=== PATIENT | female | born 1945 | race Caucasian/White ===

== ENCOUNTER 2017-12-13 16:13 | Emergency (ER) | payer OTHER, SELFPAY ==
[2017-12-13 16:17] VITALS: BP 147/82; PULSE 102; RESP 18; TEMP 36.2; O2SAT 99; BMI 21.6
[2017-12-13 17:00] VITALS: BP 147/78; PULSE 87; O2SAT 100
--- NOTE | 2017-12-13 17:27 | ED_ITS ---
HPI - Abdominal Pain <SAVANNA Drummond - Last Filed: 12/13/17 22:26> General Chief Complaint: Abdominal Pain Stated Complaint: ABD PAIN, RT SIDE Time Seen by Provider: 12/13/17 16:30 Source: patient Mode of arrival: ambulatory Limitations: no limitations History of Present Illness HPI narrative: 72-year-old female with history of hypertension and nonsmoker here for complaint of pain to her right lower abdomen that started last night. She denies any trauma to the abdomen. She denies any fevers or chills. No urinary symptoms. Last bowel movement was this morning and was unremarkable. Positive p.o. intake. She denies any stressors or relievers of her pain. She denies any flank pain. No other concerns or complaints Related Data Home Medications Medication Instructions Recorded Confirmed B-complex with vitamin C capsule 1 cap PO DAILY 11/28/17 12/13/17 aspirin 81 mg tablet,delayed 81 mg PO DAILY 11/28/17 12/13/17 release cholecalciferol (vitamin D3) 2,000 2,000 unit PO 1-2XD 11/28/17 12/13/17 unit capsule alprazolam 0.125 mg PO PRN PRN 12/13/17 12/13/17 Previous Rx's Medication Instructions Recorded hydrochlorothiazide 12.5 mg capsule 12.5 mg PO DAILY #90 cap 11/28/17 triamcinolone acetonide 0.025 % 1 applictn TOP DAILY PRN #80 gram 11/28/17 topical ointment varicella-zoster glycoE [id number] 50 mcg IM ONCE #1 each 11/28/17 adj(PF) 50 mcg/0.5 mL IM susp, kit ciprofloxacin HCl 500 mg PO BID #14 tab 12/13/17 hydrocodone-acetaminophen [[place]] 1 tab PO Q4-6H PRN #15 tab 12/13/17 metronidazole 250 mg PO TID #21 tab 12/13/17 ondansetron [Zofran ODT] 4 mg PO Q8-12H PRN #10 tab 12/13/17 Allergies Allergy/AdvReac Type Severity Reaction Status Date / Time meperidine [MEPERIDINE] Allergy Intermediate (DEMEROL) Verified 12/13/17 16:22 SHIVERS nitrofurantoin AdvReac Severe (MACROBID) Verified 12/13/17 16:22 [NITROFURANTOIN] RASH Review of Systems <SAVANNA Drummond - Last Filed: 12/13/17 22:26> Constitutional Denies chills, Denies fatigue, Denies fever(s), Denies lethargy and Denies weakness Eyes Denies change in vision, Denies eye discharge, Denies irritation and Denies loss of vision ENT Ears, Nose, Mouth, and Throat: Denies change in voice, Denies neck pain and Denies sore throat Cardiovascular Denies dyspnea and Denies dyspnea on exertion Respiratory Denies cough, Denies dyspnea, Denies dyspnea on exertion and Denies wheezing Gastrointestinal Gastrointestinal: Reports abdominal pain Genitourinary Denies hematuria, Denies flank pain, Denies urinary incontinence and Denies urinary urgency Musculoskeletal Denies neck pain Neurologic Denies confusion, Denies loss of vision and Denies weakness Psychiatric Denies anxiety, Denies confusion, Denies depression, Denies homicidal ideation and Denies suicidal ideation Endocrine Denies fatigue and Denies flushing Hematologic/Lymphatic Denies easy bruising Allergic/Immunologic Denies wheezing Exam <SAVANNA Drummond - Last Filed: 12/13/17 22:26> Initial Vital Signs Initial Vital Signs: Vital Signs Temperature 97.1 F L 12/13/17 16:17 Pulse Rate 102 H 12/13/17 16:17 Respiratory Rate 18 12/13/17 16:17 Blood Pressure 147/82 H 12/13/17 16:17 Pulse Oximetry 99 12/13/17 16:17 Const General: cooperative and well developed Nutritional Appearance: well nourished Orientation: alert, awake, oriented x3 and not confused [facility] Mouth: oral mucosae normal and moist mucous membranes Eyes Conjunctivae: conjunctivae normal Sclera: sclerae normal Pupils: PERRL EOM: EOM intact bilaterally Resp Effort & Inspection: normal respiratory effort, able to speak in complete sentences, no respiratory distress and no use of accessory muscles Auscultation: clear to auscultation bilaterally, no rales, no rhonchi and no wheezes Cardio Rate: regular rate Rhythm: regular rhythm Heart Sounds: no click, no gallops, no murmurs and no rubs Pulses: normal peripheral pulses GI Inspection: non-distended Palpation: soft, no hepatosplenomegaly, No guarding, No pulsatile mass and tender (Right lower quadrant) Auscultation: normal bowel sounds Skin General: no rashes or lesions noted, No jaundice and No petechiae Neuro General: alert, oriented x3, gait normal and no focal motor deficits Speech: speech normal <Herminio Gordon DO - Last Filed: 12/13/17 23:25> Initial Vital Signs Initial Vital Signs: Vital Signs Temperature 97.1 F L 12/13/17 16:17 Pulse Rate 102 H 12/13/17 16:17 Respiratory Rate 18 12/13/17 16:17 Blood Pressure 147/82 H 12/13/17 16:17 Pulse Oximetry 99 12/13/17 16:17 Course <SAVANNA Drummond - Last Filed: 12/13/17 22:26> Orders Ordered: ED Orders 12/13/17 17:20 Complete Blood Count AUTO DIFF Stat 12/13/17 18:30 Comprehensive Metabolic Panel Stat Lipase Stat 12/13/17 18:31 CT abdomen pelvis w con Stat 12/13/17 19:47 Urine Culture Stat Urine Microscopic Stat Discontinued Medications Hydrocodone Bitart/Acetaminophen (Vicodin Prepack) 1 bottle MISC SEEINSTR ONE Stop: 12/13/17 21:01 Last Admin: 12/13/17 21:13 Dose: 1 bottle Ciprofloxacin (Cipro) 500 mg PO NOW ONE Stop: 12/13/17 20:46 Last Admin: 12/13/17 20:55 Dose: 500 mg Sodium Chloride (Normal Saline 0.9%) 1,000 mls @ 150 mls/hr IV CONT SHAWNA Last Infusion: 12/13/17 20:32 Dose: 0 mls/hr Admin: 12/13/17 18:38 Dose: 150 mls/hr Metronidazole (Metronidazole) 500 mg PO NOW ONE Stop: 12/13/17 20:46 Last Admin: 12/13/17 20:51 Dose: 500 mg Ondansetron HCl (Zofran Odt Prepack) 1 bottle MISC SEEINSTR ONE Stop: 12/13/17 21:02 Last Admin: 12/13/17 21:13 Dose: 1 bottle Vital Signs - 8 hr 12/13/17 16:17 12/13/17 17:00 12/13/17 18:00 Temperature 97.1 F L Pulse Rate 102 H 87 94 H Respiratory Rate 18 Blood Pressure 147/82 H Blood Pressure [Left Arm] 147/78 H 148/65 H Pulse Oximetry 99 100 97 12/13/17 19:00 12/13/17 20:00 Temperature Pulse Rate 100 H 101 H Respiratory Rate 12 Blood Pressure Blood Pressure [Left Arm] 153/74 H 154/73 H Pulse Oximetry 98 100 <Herminio Gordon DO - Last Filed: 12/13/17 23:25> Orders Ordered: ED Orders 12/13/17 17:20 Complete Blood Count AUTO DIFF Stat 12/13/17 18:30 Comprehensive Metabolic Panel Stat Lipase Stat 12/13/17 18:31 CT abdomen pelvis w con Stat 12/13/17 19:47 Urine Culture Stat Urine Microscopic Stat Discontinued Medications Hydrocodone Bitart/Acetaminophen (Vicodin Prepack) 1 bottle MISC SEEINSTR ONE Stop: 12/13/17 21:01 Last Admin: 12/13/17 21:13 Dose: 1 bottle Ciprofloxacin (Cipro) 500 mg PO NOW ONE Stop: 12/13/17 20:46 Last Admin: 12/13/17 20:55 Dose: 500 mg Sodium Chloride (Normal Saline 0.9%) 1,000 mls @ 150 mls/hr IV CONT SHAWNA Last Infusion: 12/13/17 20:32 Dose: 0 mls/hr Admin: 12/13/17 18:38 Dose: 150 mls/hr Metronidazole (Metronidazole) 500 mg PO NOW ONE Stop: 12/13/17 20:46 Last Admin: 12/13/17 20:51 Dose: 500 mg Ondansetron HCl (Zofran Odt Prepack) 1 bottle MISC SEEINSTR ONE Stop: 12/13/17 21:02 Last Admin: 12/13/17 21:13 Dose: 1 bottle Vital Signs - 8 hr 12/13/17 16:17 12/13/17 17:00 12/13/17 18:00 Temperature 97.1 F L Pulse Rate 102 H 87 94 H Respiratory Rate 18 Blood Pressure 147/82 H Blood Pressure [Left Arm] 147/78 H 148/65 H Pulse Oximetry 99 100 97 12/13/17 19:00 12/13/17 20:00 Temperature Pulse Rate 100 H 101 H Respiratory Rate 12 Blood Pressure Blood Pressure [Left Arm] 153/74 H 154/73 H Pulse Oximetry 98 100 MDM - Abdominal Pain <SAVANNA Drummond - Last Filed: 12/13/17 22:26> Lab Data Result diagrams: 12/13/17 17:20 12/13/17 18:30 Lab Results 12/13/17 12/13/17 12/13/17 Range/Units 17:20 18:30 19:47 WBC 8.4 (4.5-11.0) X10^3/uL RBC 4.62 (4.0-5.2) X10^6/uL Hgb 14.6 (12.0-16.0) g/dL Hct 44.0 (36-46) % MCV 95.4 (80-100) fL MCH 31.7 (26-34) PG MCHC 33.3 (30-36) % RDW 13.1 (11.6-14.8) % Plt Count 168 (150-400) X10^3/uL Neut % (Auto) 87.3 H (50-75) % Lymph % (Auto) 9.0 L (25-40) % [place] % (Auto) 3.4 (3-14) % Eos % (Auto) 0.1 L (2-4) % Baso % (Auto) 0.2 (0-2) % Neut # (Auto) 7300 H (4175-4987) /uL Sodium 135 L (137-145) mmol/L Potassium 4.0 (3.4-5.1) mmol/L Chloride 98 (98-107) mmol/L Carbon Dioxide 27 (22-32) mmol/L BUN 17 (7-17) mg/dL Creatinine 0.60 (0.52-1.04) mg/dL Estimated GFR > 60.0 (>60) mL/min BUN/Creatinine Ratio 28.3 H (6-22) Glucose 116 H (80-110) mg/dL Calcium 9.4 (8.4-10.2) mg/dL Total Bilirubin 0.9 (0.2-1.3) mg/dL AST 44 H (14-36) IU/L ALT 36 (9-52) IU/L Alkaline Phosphatase 52 (38-126) U/L Total Protein 6.9 (6.3-8.2) g/dL Albumin 4.1 (3.5-5.0) g/dL Globulin 2.8 (1.7-4.1) g/dL Albumin/Globulin Ratio 1.5 (1.0-2.8) Lipase 25 (23-300) U/L Urine RBC None seen (0-5/HPF) Urine WBC 5-10/hpf H (0-5/HPF) Ur Squamous Epith Cells 0-1 /hpf Urine Bacteria Many (>30) H (None) Ur Culture Indicated? Specimen cultured Micro UA Comment Not Reportable Point of care testing: Urine Dip Bedside Urine Glucose Negative Bedside Urine Bilirubin - Negative Bedside Urine Ketone - Negative Urine Specific [place] 1.015 Bedside Urine Occult Blood - Negative Bedside Urine pH 6.5 Bedside Urine Protein - Negative Bedside Urine Urobilinogen - Negative Bedside Urine Nitrite + Positive Bedside Urine Leukocytes +/- [address] scan - abdomen: Radiologist's impression: [address] [address] [address] Scan Report Signed Patient: Kristy Diez SMR#: [id number] : 3Acct:[id number] Age/Sex: 72 / FDate of Service: 12/13/17 Loc: ED Accession Number: [id number] Procedure: CT abdomen pelvis w con Ordering Provider: Nura Baires PROCEDURE: CT ABDOMEN PELVIS W CON INDICATIONS: Right lower quadrant pain TECHNIQUE: After the administration of intravenous contrast, 5 mm thick sections acquired from the diaphragm to the symphysis. 5 mm coronal and sagittal reformats were acquired. For radiation dose reduction, the following was used: automated exposure control, adjustment of mA and/or kV according to patient size. COMPARISON: None. FINDINGS: Image quality: Excellent. ABDOMEN: Lung bases: Lung bases are clear. Heart size is normal. Solid organs: Liver is normal in size and enhancement. Gallbladder is well- distended. No calcified stone is seen. No gallbladder wall thickening or pericholecystic fluid. Biliary system is non dilated. Pancreas enhances normally. Spleen is normal in size and enhancement. No adrenal nodules. Kidneys demonstrate normal size and enhancement, without hydronephrosis. Peritoneum and bowel: Bowel loops demonstrate normal wall thickness and caliber. No free fluid or air. The appendix is visualized in right lower quadrant abdomen and is normal in size and appearance. No periappendiceal fat stranding is seen. Extensive sigmoid diverticulosis is noted. There is suggestion of wall thickening and pericolonic fat stranding involving distal sigmoid colon suspicious for acute diverticulitis. No discrete abscess collection. Nodes and vessels: No retroperitoneal or mesenteric adenopathy by size criteria. Aorta and inferior vena cava are normal in size. Miscellaneous: No ventral hernias. PELVIS: Genitourinary: Bladder wall thickness is normal. Miscellaneous: No inguinal hernias or adenopathy. Bones: No suspicious bony lesions. No vertebral body compression fractures. IMPRESSION: 1. Finding is suggestive of acute diverticulitis involving distal sigmoid colon. No evidence of perforation. No abscess collection. 2. Normal appendix. No bowel structure. Dictated by: Mihai Duncan M.D. on 12/13/2017 at 20:08 Approved by: Mihai Duncan M.D. on 12/13/2017 at 20:11 [facility] Narrative Medical decision making narrative: CBC and Chem panell were obtained were unremarkable. Lipase was negative. Urinalysis presents with positive WBC and also many bacteria seen however patient is asymptomatic for urinary tract infection. CT of the abdomen shows signs of diverticulitis. She is treated with ciprofloxacin and also metronidazole. Follow up with primary care provider in the next couple days for re-evaluation. Zofran is prescribed to help with any nausea. Small amount of [place] was provided for breakthrough pain. [id number] Tylenol as needed for any discomfort. For any worsening symptoms return emergency room. <Herminio Gordon, - Last Filed: 12/13/17 23:25> Lab Data Lab Results 12/13/17 12/13/17 12/13/17 Range/Units 17:20 18:30 19:47 WBC 8.4 (4.5-11.0) X10^3/uL RBC 4.62 (4.0-5.2) X10^6/uL Hgb 14.6 (12.0-16.0) g/dL Hct 44.0 (36-46) % MCV 95.4 (80-100) fL MCH 31.7 (26-34) PG MCHC 33.3 (30-36) % RDW 13.1 (11.6-14.8) % Plt Count 168 (150-400) X10^3/uL Neut % (Auto) 87.3 H (50-75) % Lymph % (Auto) 9.0 L (25-40) % Saunders % (Auto) 3.4 (3-14) % Eos % (Auto) 0.1 L (2-4) % Baso % (Auto) 0.2 (0-2) % Neut # (Auto) 7300 H (9181-0651) /uL Sodium 135 L (137-145) mmol/L Potassium 4.0 (3.4-5.1) mmol/L Chloride 98 (98-107) mmol/L Carbon Dioxide 27 (22-32) mmol/L BUN 17 (7-17) mg/dL Creatinine 0.60 (0.52-1.04) mg/dL Estimated GFR > 60.0 (>60) mL/min BUN/Creatinine Ratio 28.3 H (6-22) Glucose 116 H (80-110) mg/dL Calcium 9.4 (8.4-10.2) mg/dL Total Bilirubin 0.9 (0.2-1.3) mg/dL AST 44 H (14-36) IU/L ALT 36 (9-52) IU/L Alkaline Phosphatase 52 (38-126) U/L Total Protein 6.9 (6.3-8.2) g/dL Albumin 4.1 (3.5-5.0) g/dL Globulin 2.8 (1.7-4.1) g/dL Albumin/Globulin Ratio 1.5 (1.0-2.8) Lipase 25 (23-300) U/L Urine RBC None seen (0-5/HPF) Urine WBC 5-10/hpf H (0-5/HPF) Ur Squamous Epith Cells 0-1 /hpf Urine Bacteria Many (>30) H (None) Ur Culture Indicated? Specimen cultured Micro UA Comment Not Reportable Point of care testing: Urine Dip Bedside Urine Glucose Negative Bedside Urine Bilirubin - Negative Bedside Urine Ketone - Negative Urine Specific [place] 1.015 Bedside Urine Occult Blood - Negative Bedside Urine pH 6.5 Bedside Urine Protein - Negative Bedside Urine Urobilinogen - Negative Bedside Urine Nitrite + Positive Bedside Urine Leukocytes +/- 15 Esterase Discharge Plan Departure Patient Disposition: Home Clinical Impression: Diverticulitis Discharge Date/Time: 12/13/17 21:25 Interventions: ED Discharge Assessment Last Done: 12/13/17 21:22 Instructions: Diverticulitis Activity Restrictions/Additional Instructions: Urinalysis indicates urinary tract infection however other laboratory results were unremarkable. CT of the abdomen shows signs of diverticulitis. Urine placed on antibiotics called ciprofloxacin and metronidazole use as directed. Use prescribed ondansetron as needed for nausea. Use [id number] Tylenol as needed for any discomfort. For breakthrough pain neck over by the Tylenol use prescribed [place]. Follow up with her primary care provider in the next couple days for re-evaluation. For any worsening symptoms return to the emergency room. Prescriptions: New hydrocodone-acetaminophen [[place]] 5-325 mg tablet 1 tab PO Q4-6H PRN (Reason: pain) Qty: 15 RF: 0 metronidazole 500 mg tablet 250 mg PO TID Qty: 21 RF: 0 ciprofloxacin HCl 500 mg tablet 500 mg PO BID Qty: 14 RF: 0 ondansetron [Zofran ODT] 4 mg tablet,disintegrating 4 mg PO Q8-12H PRN (Reason: nausea and vomiting) Qty: 10 RF: 0 No Action cholecalciferol (vitamin D3) [Vitamin D3] 2,000 unit Capsule 2,000 unit PO 1-2XD RF: 0 B-complex with vitamin C [Vitamin B Complex With C] Capsule 1 cap PO DAILY RF: 0 aspirin 81 mg Tablet,Delayed Release (Dr/Ec) 81 mg PO DAILY RF: 0 varicella-zoster [id number] (PF) [Shingrix (PF)] 50 mcg/0.5 mL suspension for reconstitution 50 mcg IM ONCE Qty: 1 RF: 1 triamcinolone acetonide 0.025 % ointment 1 applictn TOP DAILY PRN (Reason: rash) Qty: 80 RF: 0 hydrochlorothiazide 12.5 mg capsule 12.5 mg PO DAILY Qty: 90 RF: 1 alprazolam 0.25 mg tablet 0.125 mg PO PRN PRN (Reason: Anxiety) RF: 0 <Herminio Gordon DO - Last Filed: 12/13/17 23:25> Cosign ED Attending Filiature Attestation: I was available for consultation during this patient's emergency department encounter
[2017-12-13 18:00] VITALS: BP 148/65; PULSE 94; O2SAT 97
--- NOTE | 2017-12-13 18:31 | DI.CT.S_ITS ---
PROCEDURE: CT ABDOMEN PELVIS W CON INDICATIONS: Right lower quadrant pain TECHNIQUE: After the administration of intravenous contrast, 5 mm thick sections acquired from the diaphragm to the symphysis. 5 mm coronal and sagittal reformats were acquired. For radiation dose reduction, the following was used: automated exposure control, adjustment of mA and/or kV according to patient size. COMPARISON: None. FINDINGS: Image quality: Excellent. ABDOMEN: Lung bases: Lung bases are clear. Heart size is normal. Solid organs: Liver is normal in size and enhancement. Gallbladder is well-distended. No calcified stone is seen. No gallbladder wall thickening or pericholecystic fluid. Biliary system is non dilated. Pancreas enhances normally. Spleen is normal in size and enhancement. No adrenal nodules. Kidneys demonstrate normal size and enhancement, without hydronephrosis. Peritoneum and bowel: Bowel loops demonstrate normal wall thickness and caliber. No free fluid or air. The appendix is visualized in right lower quadrant abdomen and is normal in size and appearance. No periappendiceal fat stranding is seen. Extensive sigmoid diverticulosis is noted. There is suggestion of wall thickening and pericolonic fat stranding involving distal sigmoid colon suspicious for acute diverticulitis. No discrete abscess collection. Nodes and vessels: No retroperitoneal or mesenteric adenopathy by size criteria. Aorta and inferior vena cava are normal in size. Miscellaneous: No ventral hernias. PELVIS: Genitourinary: Bladder wall thickness is normal. Miscellaneous: No inguinal hernias or adenopathy. Bones: No suspicious bony lesions. No vertebral body compression fractures. IMPRESSION: 1. Finding is suggestive of acute diverticulitis involving distal sigmoid colon. No evidence of perforation. No abscess collection. 2. Normal appendix. No bowel structure. Dictated by: Mihai Duncan M.D. on 12/13/2017 at 20:08 Approved by: Mihai Duncan M.D. on 12/13/2017 at 20:11
[2017-12-13] MEDS: SODIUM CHLORIDE 0.9% 1,000 ML 150 ML IV (18:38)
[2017-12-13 18:57] LABS: Add Manual Diff / Slide Review NO; Basophils Percent Auto 0.2 % (0-2); Eosinophils Percent Auto 0.1 % (2-4); Hemoglobin 14.6 g/dL (12.0-16.0); Mean Corpuscular HGB Conc 33.3 % (30-36); Mean Corpuscular Hemoglobin 31.7 PG (26-34); Mean Corpuscular Volume 95.4 fL (80-100); Monocytes Percent Auto 3.4 % (3-14); Neutrophils Absolute Auto 7300 /uL (3000-5900); Neutrophils Percent Auto 87.3 % (50-75); Platelet Count 168 X10^3/uL (150-400); Red Blood Cell Count 4.62 X10^6/uL (4.0-5.2); Red Cell Distribution Width 13.1 % (11.6-14.8); White Blood Cell Count 8.4 X10^3/uL (4.5-11.0)
[2017-12-13 19:00] VITALS: BP 153/74; PULSE 100; O2SAT 98
[2017-12-13 19:37] LABS: Alanine Aminotransferase 36 IU/L (9-52); Albumin 4.1 g/dL (3.5-5.0); Albumin Globulin Ratio 1.5 (1.0-2.8); Alkaline Phosphatase 52 U/L (38-126); Aspartate Aminotransferase 44 IU/L (14-36); BUN Creatinine Ratio 28.3 (6-22); Bilirubin Total 0.9 mg/dL (0.2-1.3); Blood Urea Nitrogen 17 mg/dL (7-17); Calcium 9.4 mg/dL (8.4-10.2); Carbon Dioxide 27 mmol/L (22-32); Chloride 98 mmol/L (98-107); Estimated Glomerular Filt Rate > 60.0 mL/min (>60); Globulin 2.8 g/dL (1.7-4.1); Glucose 116 mg/dL (80-110); HEMOLYSIS 33 (0-50); Lipase 25 U/L (23-300); Sodium 135 mmol/L (137-145); Total Protein 6.9 g/dL (6.3-8.2)
[2017-12-13 19:52] LABS: RBC Urine None Seen (0-5/HPF)
[2017-12-13 20:00] VITALS: BP 154/73; PULSE 101; RESP 12; O2SAT 100
[2017-12-13 20:07] LABS: Bacteria Urine Many (>30); Culture Indicated Urine Specimen Cultured; Squamous Epithelial Cell Urine 0-1 /HPF; WBC Urine 5-10/HPF (0-5/HPF)
[2017-12-13] MEDS: metroNIDAZOLE 250 MG TABLET 500 MG PO (20:51)
[2017-12-13] MEDS: CIPROFLOXACIN 500 MG TABLET PO (20:55)
[2017-12-13] MEDS: ONDANSETRON 4 MG ODT PREPACK 1 BOTTLE MISC (21:13)
[2017-12-13] MEDS: HYDROCODONE/ACET 5/325 PREPACK 1 BOTTLE MISC (21:13)
== END 2017-12-13 21:25 | disposition home or self-care (01) ==
PROVIDERS: Emergency Provider Nurse Practitioner Family; PCP Physician Assistant
DX: K57.92 Diverticulitis of intestine, part unspecified, without perforation or abscess without bleeding (principal)
CPT/HCPCS: 36591; 74177; 80053; 81003; 81015; 83690; 85025; 87077; 87086; 87186; 96360; 96361; 99284; 99285; Q9967

== ENCOUNTER → 2018-11-07 11:07 | Outpatient (CLI) | payer OTHER, SELFPAY ==
[2018-11-07 11:34] LABS: Add Manual Diff / Slide Review NO; Basophils Absolute Auto 0 /uL (0-100); Basophils Percent Auto 0.6 % (0-2); Eosinophils Absolute Auto 100 /uL (0-450); Eosinophils Percent Auto 1.1 % (2-4); Lymphocytes Absolute Auto 1500 /uL (1100-4500); Lymphocytes Percent Auto 28.7 % (25-40); Mean Corpuscular Hemoglobin 32.2 PG (26-34); Mean Corpuscular Volume 94.6 fL (80-100); Monocytes Absolute Auto 400 /uL (0-900); Monocytes Percent Auto 8.5 % (3-14); Neutrophils Absolute Auto 3100 /uL (1500-7000); Neutrophils Percent Auto 61.1 % (50-75); Platelet Count 176 X10^3/uL (150-400); Red Blood Cell Count 4.65 X10^6/uL (4.0-5.2); Red Cell Distribution Width 12.9 % (11.6-14.8); White Blood Cell Count 5.1 X10^3/uL (4.5-11.0)
[2018-11-07 11:46] LABS: Alanine Aminotransferase 34 IU/L (9-52); Albumin 4.3 g/dL (3.5-5.0); Albumin Globulin Ratio 1.4 (1.0-2.8); Alkaline Phosphatase 77 U/L (38-126); Aspartate Aminotransferase 44 IU/L (14-36); BUN Creatinine Ratio 23.8 (6-22); Blood Urea Nitrogen 19 mg/dL (7-17); Calcium 9.4 mg/dL (8.4-10.2); Carbon Dioxide 28 mmol/L (22-32); Chloride 95 mmol/L (98-107); Cholesterol 203 mg/dL (140-199); Estimated Glomerular Filt Rate > 60.0 mL/min (>60); Glucose 91 mg/dL (80-110); HDL Cholesterol 95 mg/dL (40-60); HEMOLYSIS < 15 (0-50); LDL Cholesterol Calculated 93 mg/dL (<100); Potassium 4.7 mmol/L (3.4-5.1); Sodium 135 mmol/L (137-145); Total Protein 7.3 g/dL (6.3-8.2); Triglycerides 74 mg/dL (35-150)
[2018-11-07 12:15] LABS: Free T3, Triiodothyronine Free 3.54 pg/mL (2.77-5.27); Free T4, Direct Thyroxine 0.92 ng/dL (0.78-2.19)
[2018-11-07 12:16] LABS: Vitamin D 25 Hydroxy (D3) 49.2 ng/mL (30.0-100.0)
[2018-11-07 12:29] LABS: Thyroid Stimulating Hormone 2.93 uIU/mL (0.47-4.68)
[2018-11-07 12:31] LABS: Vitamin B12 403 pg/mL (239-931)
== END ==
PROVIDERS: PCP Physician Assistant; Visit Provider Physician Assistant
DX: E78.5 Hyperlipidemia, unspecified (principal); I10 Essential (primary) hypertension; R53.83 Other fatigue; R68.89 Other general symptoms and signs
CPT/HCPCS: 36415; 80053; 80061; 82306; 82607; 84439; 84443; 84481; 85025

== ENCOUNTER → 2022-03-28 11:10 | Outpatient (CLI) | payer OTHER, SELFPAY ==
[2022-03-28 13:39] LABS: Hematocrit 43.5 % (36-46); Hemoglobin 14.5 g/dL (12.0-16.0); Mean Corpuscular HGB Conc 33.4 % (30-36); Mean Corpuscular Hemoglobin 33.3 PG (26-34); Mean Corpuscular Volume 99.8 fL (80-100); Platelet Count 170 X10^3/uL (150-400); Red Blood Cell Count 4.36 X10^6/uL (4.0-5.2); Red Cell Distribution Width 13.5 % (11.6-14.8); White Blood Cell Count 4.9 X10^3/uL (4.5-11.0)
[2022-03-28 13:59] LABS: Alanine Aminotransferase 29 IU/L (<35); Alkaline Phosphatase 71 U/L (38-126); Aspartate Aminotransferase 49 IU/L (14-36); BUN Creatinine Ratio 23.7 (6-22); Bilirubin Total 0.8 mg/dL (0.2-1.3); Blood Urea Nitrogen 18 mg/dL (7-17); Carbon Dioxide 29 mmol/L (22-32); Chloride 99 mmol/L (98-107); Estimated Glomerular Filt Rate > 60 mL/min (>60); Glucose 95 mg/dL (80-110); Potassium 4.4 mmol/L (3.4-5.1); Sodium 137 mmol/L (137-145)
[2022-03-28 14:24] LABS: Free T4, Direct Thyroxine 0.93 ng/dL (0.78-2.19)
[2022-03-28 14:38] LABS: Thyroid Stimulating Hormone 3.51 uIU/mL (0.47-4.68)
[2022-03-29 13:33] LABS: Appearance Urine UA CLEAR; Bilirubin Urine UA NEGATIVE (NEGATIVE); Color Urine UA YELLOW; Glucose Urine UA NEGATIVE (Negative); Ketones Urine UA NEGATIVE (NEGATIVE); Leukocyte Esterase Urine UA TRACE (NEGATIVE); Nitrite Urine UA NEGATIVE (Negative); Occult Blood Urine UA NEGATIVE (Negative); Protein Urine UA NEGATIVE (Negative); Specific Gravity Urine UA 1.015 (1.000-1.035); Urobilinogen Urine UA 0.2 E.U./dL (0.2)
[2022-03-29 13:40] LABS: pH Urine UA 6.5 (4.5-8.0)
[2022-03-29 13:52] LABS: RBC Urine None Seen (0-5/HPF); WBC Urine 1-5/HPF (0-5/HPF)
[2022-03-29 13:53] LABS: Amorphous Sediment Urine 2+; Bacteria Urine None Seen; Culture Indicated Urine Specimen Cultured; Hyaline Casts Urine 0-1/LPF; Mucus Urine 2+ (Negative); Squamous Epithelial Cell Urine 1-5 /HPF (0-5/HPF)
[2022-03-30 16:42] LABS: Albumin Globulin Ratio 1.3 (1.0-2.8); HEMOLYSIS 15 (0-50)
== END ==
PROVIDERS: PCP Registered Nurse Diabetes Educator; Referring Provider Registered Nurse Diabetes Educator; Visit Provider Registered Nurse Diabetes Educator
DX: R42 Dizziness and giddiness (principal); R74.8 Abnormal levels of other serum enzymes
CPT/HCPCS: 36415; 80053; 81001; 84439; 84443; 85027; 87086

== ENCOUNTER → 2023-04-24 11:01 | Outpatient (CLI) | payer OTHER, SELFPAY ==
[2023-04-24 12:22] LABS: Hematocrit 43.6 % (36-46); Mean Corpuscular HGB Conc 34.4 % (30-36); Mean Corpuscular Hemoglobin 33.8 PG (26-34); Mean Corpuscular Volume 98.2 fL (80-100); Platelet Count 168 X10^3/uL (150-400); Red Blood Cell Count 4.44 X10^6/uL (4.0-5.2); Red Cell Distribution Width 12.6 % (11.6-14.8); White Blood Cell Count 5.8 X10^3/uL (4.5-11.0)
[2023-04-24 12:58] LABS: Alanine Aminotransferase 25 IU/L (<35); Albumin 3.8 g/dL (3.5-5.0); Albumin Globulin Ratio 1.4 (1.0-2.8); Alkaline Phosphatase 60 U/L (38-126); Aspartate Aminotransferase 39 IU/L (14-36); BUN Creatinine Ratio 13.3 (6-22); Blood Urea Nitrogen 12 mg/dL (7-17); Calcium 9.7 mg/dL (8.4-10.2); Carbon Dioxide 25 mmol/L (22-32); Chloride 93 mmol/L (98-107); Estimated Glomerular Filt Rate > 60 mL/min (>60); Globulin 2.8 g/dL (1.7-4.1); Glucose 99 mg/dL (80-110); HEMOLYSIS < 15 (0-50); Potassium 3.8 mmol/L (3.4-5.1); Sodium 129 mmol/L (137-145); Total Protein 6.6 g/dL (6.3-8.2)
[2023-04-24 13:10] LABS: Free T4, Direct Thyroxine 1.16 ng/dL (0.78-2.19)
[2023-04-24 13:24] LABS: Thyroid Stimulating Hormone 4.07 uIU/mL (0.47-4.68)
== END ==
LOC: LAB 11:03
PROVIDERS: PCP Registered Nurse Diabetes Educator; Referring Provider Registered Nurse Diabetes Educator; Visit Provider Registered Nurse Diabetes Educator
DX: R42 Dizziness and giddiness (principal); R74.8 Abnormal levels of other serum enzymes; R53.83 Other fatigue
CPT/HCPCS: 36415; 80053; 84439; 84443; 85027

== ENCOUNTER 2024-02-21 12:37 | Emergency (ER) | payer OTHER, SELFPAY ==
[2024-02-21] VITALS (12 sets, daily range): BP systolic 110–152; BP diastolic 62–78; PULSE 75–103; RESP 11–25; TEMP 36.4; O2SAT 96–100
--- NOTE | 2024-02-21 13:07 | EKG_ITS ---
[facility] [address] [place] [address] Test Date: 2024-02-21 Pat Name: Kristy Diez Department: [facility] Room: Gender: Female [employer] Install Technician: ADINA : 1945 Requested By: Order Number: [id number] Reading MD: Frank Lugo MD Measurements Intervals [place] Rate: 81 P: 63 TX: 136 QRS: -25 QRSD: 56 T: 16 QT: 388 QTc: 450 Interpretive Statements Normal sinus rhythm with sinus arrhythmia Nonspecific ST and T wave abnormality Electronically Signed On 02-22-2024 16:16:36 PST by Frank Lugo MD
--- NOTE | 2024-02-21 13:07 | DI.RAD.S_ITS ---
PROCEDURE: XR CHEST 1V INDICATIONS: altered mental status TECHNIQUE: One view of the chest was acquired. COMPARISON: None. FINDINGS: Surgical changes and devices: None. Lungs and pleura: Lungs are clear except for what appears to be a calcified hamartoma overlying the lateral right base at the costophrenic sulcus, measuring up to 1.8 cm in maximal dimension. No pleural effusions or pneumothorax. Mediastinum: Mediastinal contours appear normal. Heart size is normal. Bones and chest wall: No suspicious bony lesions. Overlying soft tissues appear unremarkable. 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 Heart size is normal. Dictated by: Jacob Chavez M.D. on 02/21/2024 at 13:54 Approved by: Jacob Chavez M.D. on 02/21/2024 at 13:56
--- NOTE | 2024-02-21 13:29 | ED_ITS ---
HPI - Altered Mental Status General Chief Complaint: Altered Mental Status Stated Complaint: might have Viral pneumonia Time Seen by Provider: 02/21/24 13:14 Source: patient, RN notes reviewed and old records reviewed Mode of arrival: Ambulatory Limitations: no limitations History of Present Illness HPI narrative: 79-year-old female history of hypertension, chronic alcohol use, anxiety presents with little bit altered mental status as well as cough. Patient is accompanied by her . Patient has had a little bit of decreased memory over the past year although she states she does not he states she has but has been much more prominent in the last 1-2 weeks. No fevers reported, she was had a cough that has been nonproductive. No chest pain, no reports of shortness of breath, no new swelling in extremities. Has been states she has had swelling in the past but has been improved. No nausea or vomiting. Little bit decreased appetite but taking fluids regularly. Denies issues with bowel movements denies issues with dysuria urgency or frequency. He notes she gets a little bit dizzy when she gets up to stand suddenly. Patient notes this is well. Patient is on a daily medication for anxiety no other prescription meds. No reports of surgical history. EMR notes meperidine and nitrofurantoin for drug allergies. No tobacco use drinks 1-2 glasses of wine daily, no recreational drugs. Primary care is Henrik Medina. Patient has not appointment with Dr. Liz Redding on this Saturday at 11am. Patient does get quite frustrated with her , they both note that there was some infidelity about a year ago and patient persistently returns to that in the conversation and expresses frustration. Related Data Home Medications Medication Instructions Recorded Confirmed cholecalciferol (vitamin D3) 50 2,000 unit PO DAILY 11/05/18 08/13/23 mcg (2,000 unit) capsule Previous Rx's Medication Instructions Recorded escitalopram oxalate 5 mg tablet 2.5 mg (1/2 x 5 mg) PO DAILY #30 08/13/23 (Lexapro) tabs amoxicillin 875 mg-potassium 1 tab PO BID #14 tabs 02/21/24 clavulanate 125 mg tablet Allergies Allergy/AdvReac Type Severity Reaction Status Date / Time meperidine [MEPERIDINE] Allergy Intermediate (DEMEROL) Verified 02/21/24 13:15 SHIVERS nitrofurantoin AdvReac Severe (MACROBID) Verified 02/21/24 13:15 [NITROFURANTOIN] RASH Review of Systems Review of Systems ROS Unobtainable: All systems reviewed & are unremarkable except as noted in HPI and below Patient History Medical History Anxiety (~2021) Chickenpox Measles Mumps Hyperlipemia Hypertension Surgical History Anesthesia Status post hysterectomy (1989) Family History Father Colon cancer Mother No problems noted. Social History Smoking Status: Former smoker Tobacco: How many years used: 9 second hand exposure: No alcohol intake: current substance use type: does not use Smoking Status: Former smoker alcohol intake frequency: 0-2 drinks per day Alcohol type: wine Exam Narrative Exam Narrative: GENERAL: Alert and oriented, thin female, clear speech. HEENT: Head normocephalic, atraumatic, EOMI, pupils reactive, face symmetric, moist mucous membranes NECK: Supple, full range of motion CARDIOVASCULAR: Regular rate and rhythm without murmurs, rubs or gallops. RESPIRATORY: Breath sounds equal bilaterally, no wheezes rales or rhonchi. No tachypnea or accessory muscle use. Speaks in full sentences. ABDOMEN: Soft, nontender. Nondistended. Normoactive bowel sounds all 4 quadrants. No guarding or rebound, rigidity, no mass : No CVA tenderness EXTREMITIES: Normal range of motion, no clubbing or edema. Neurovascularly intact NEUROLOGICAL: Cranial nerves II through XII grossly intact. Moving all extremities SKIN: Warm, dry, no petechiae, no rashes or lesions. Initial Vital Signs Initial Vital Signs: Vital Signs Temperature 97.6 F 02/21/24 13:11 Pulse Rate 92 H 02/21/24 13:11 Respiratory Rate 16 02/21/24 13:11 Blood Pressure 110/67 02/21/24 13:11 Pulse Oximetry 97 02/21/24 13:11 Oxygen Delivery Method Room Air 02/21/24 13:11 Course Orders Ordered: ED Orders 02/21/24 13:07 XR chest 1V Stat EKG-12 Lead Stat 02/21/24 13:20 Ammonia (NH3) Stat BNP [NT-proBNP (BNP-Adult 18+)] Stat Complete Blood Count AUTO DIFF Stat Comprehensive Metabolic Panel Stat Lipase Stat Troponin & CK Cardiac Panel Stat 02/21/24 13:45 Respiratory Panel (Film Array) Stat 02/21/24 13:53 Consult to [facility] [place] - Cylinder Grinder Stat 02/21/24 16:08 Ictotest Urine Stat UA dip [Urinalysis Screen (Dip Only)] Stat Urine Drug Screen, Rapid Stat Urine Microscopic Stat Discontinued Medications Ceftriaxone Sodium 1,000 mg/ (Sodium Chloride) 100 mls @ 200 mls/hr IV NOW ONE Stop: 02/21/24 16:25 Last Infusion: 02/21/24 17:22 Dose: Infused Documented By: Admin: 02/21/24 16:43 Dose: 200 mls/hr Documented By: CHRISTIAN Vital Signs Vital signs: Vital Signs - 8 hr 02/21/24 13:11 02/21/24 13:11 02/21/24 13:30 Temperature 97.6 F Pulse Rate 92 H 97 H 79 Respiratory Rate 16 Blood Pressure 110/67 Pulse Oximetry 97 97 99 Oxygen Delivery Method Room Air 02/21/24 13:48 02/21/24 13:48 02/21/24 14:00 Temperature Pulse Rate 77 Respiratory Rate Blood Pressure 124/68 122/66 Pulse Oximetry 99 Oxygen Delivery Method 02/21/24 14:00 02/21/24 14:30 02/21/24 15:00 Temperature Pulse Rate 76 78 78 Respiratory Rate 15 Blood Pressure Pulse Oximetry 98 99 Oxygen Delivery Method Room Air 02/21/24 15:47 02/21/24 15:48 02/21/24 15:48 Temperature Pulse Rate 101 H 96 H Respiratory Rate 15 11 L Blood Pressure 141/67 H Pulse Oximetry 96 97 Oxygen Delivery Method 02/21/24 16:00 02/21/24 16:00 02/21/24 16:30 Temperature Pulse Rate 81 Respiratory Rate Blood Pressure 152/78 H 127/62 Pulse Oximetry 98 Oxygen Delivery Method 02/21/24 16:30 02/21/24 17:00 02/21/24 17:01 Temperature Pulse Rate 77 75 103 H Respiratory Rate 22 25 H Blood Pressure Pulse Oximetry 97 100 100 Oxygen Delivery Method 02/21/24 17:01 Temperature Pulse Rate Respiratory Rate Blood Pressure 136/76 Pulse Oximetry Oxygen Delivery Method MDM - Altered Mental Status Lab Data 02/21/24 13:20 02/21/24 13:20 Labs: Lab Results 02/21/24 02/21/24 02/21/24 Range/Units 13:20 13:45 16:08 WBC 6.6 (4.5-11.0) X10^3/uL RBC 4.83 (4.0-5.2) X10^6/uL Hgb 16.9 H (12.0-16.0) g/dL Hct 49.9 H (36-46) % MCV 103.2 H (80-100) fL MCH 35.0 H (26-34) PG MCHC 33.9 (30-36) % RDW 14.1 (11.6-14.8) % Plt Count 196 (150-400) X10^3/uL Neut % (Auto) 70.4 (50-75) % Lymph % (Auto) 17.5 L (25-40) % Chester % (Auto) 11.0 (3-14) % Eos % (Auto) 0.5 L (2-4) % Baso % (Auto) 0.6 (0-2) % Neut # (Auto) 4600 (7386-1460) /uL Lymph # (Auto) 1200 (7918-9201) /uL Chester # (Auto) 700 (0-900) /uL Eos # (Auto) 0 (0-450) /uL Baso # (Auto) 0 (0-100) /uL Sodium 132 L (137-145) mmol/L Potassium 4.2 (3.4-5.1) mmol/L Chloride 94 L (98-107) mmol/L Carbon Dioxide 24 (22-32) mmol/L BUN 12 (7-17) mg/dL Creatinine 0.62 (0.52-1.04) mg/dL Estimated GFR > 60 (>60) mL/min BUN/Creatinine Ratio 19.4 (6-22) Glucose 113 H (80-110) mg/dL Calcium 9.1 (8.4-10.2) mg/dL Total Bilirubin 1.4 H (0.2-1.3) mg/dL AST 201 H (14-36) IU/L ALT 125 H (<35) IU/L Alkaline Phosphatase 135 H (38-126) U/L Ammonia < 9 L (9-30) umol/L Total Creatine Kinase 24 L (30-135) U/L Troponin I < 0.012 (0.01-0.034) ng/mL NT-Pro-B Natriuret Pep 567 H (<450) pg/mL Total Protein 6.7 (6.3-8.2) g/dL Albumin 3.7 (3.5-5.0) g/dL Globulin 3.0 (1.7-4.1) g/dL Albumin/Globulin Ratio 1.2 (1.0-2.8) Lipase 102 (23-300) U/L Urine Color Yellow Urine Appearance Clear Urine pH 6.0 (4.5-8.0) Ur Specific [place] >=1.030 H (1.000-1.035) Urine Protein Trace H (Negative) Urine Glucose (UA) Negative (Negative) g/dL Urine Ketones 3+ H (NEGATIVE) Urine Occult Blood 1+ H (Negative) Urine Nitrate Positive H (Negative) Urine Bilirubin 1+ H (NEGATIVE) Ur Bilirubin Confirm Negative (Negative) Urine Urobilinogen 1.0 (0.2) E.U./dL Ur Leukocyte Esterase Negative (NEGATIVE) Urine RBC None seen (0-5/HPF) Urine WBC 0-1/hpf (0-5/HPF) Ur Squamous Epith Cells 1-5 /hpf (0-5/HPF) Urine Bacteria Many (>30) H (None) Ur Culture Indicated? Cult not indicated Vol Urine Centrifuged Low vol <10ml unspun A U Opiates 300ng/mL cut Negative (Negative) Ur Oxycodone Screen Negative (Negative) Urine Methadone Screen Negative (Negative) Ur Barbiturates Screen Negative (Negative) U Tricyclic Antidepress Negative (Negative) Ur Phencyclidine Scrn Negative (Negative) Ur Amphetamines Screen Negative (Negative) U Methamphetamines Scrn Negative (Negative) Ur MDMA Scrn (Ecstasy) Negative (Negative) U Benzodiazepines Scrn Negative (Negative) Urine Cocaine Screen Negative (Negative) U Marijuana (THC) Screen Negative (Negative) Urine Specific [place] (Normal) Ur Creatinine (Normal) Chlamy pneumoniae PCR Not detected (Not Detect) Adenovirus (PCR) Not detected (Not Detect) B. pertussis DNA (PCR) Not detected (Not Detect) B.parapertussis DNA PCR Not detected (Not Detecte) Coronavirus OC43 (PCR) Not detected (Not Detect) Coronavirus HKU1 (PCR) Not detected (Not Detect) Coronavirus 229E (PCR) Not detected (Not Detect) SARS-CoV-2 (PCR) Not detected (Not Detecte) Coronavirus NL63 (PCR) Not detected (Not Detect) Human Metapneumovir PCR Not detected (Not Detect) Influenza Type A (PCR) Not detected (Not Detect) Influenza Type B (PCR) Not detected (Not Detect) M. pneumoniae (PCR) Not detected (Not Detect) Parainfluenza 1 (PCR) Not detected (Not Detect) Parainfluenza 2 (PCR) Not detected (Not Detect) Parainfluenza 3 (PCR) Not detected (Not Detect) Parainfluenza 4 (PCR) Not detected (Not Detect) RSV (PCR) Not detected (Not Detect) Entero/Rhino (PCR) Not detected (Not Detect) 02/21/24 Range/Units 16:08 WBC (4.5-11.0) X10^3/uL RBC (4.0-5.2) X10^6/uL Hgb (12.0-16.0) g/dL Hct (36-46) % MCV (80-100) fL MCH (26-34) PG MCHC (30-36) % RDW (11.6-14.8) % Plt Count (150-400) X10^3/uL Neut % (Auto) (50-75) % Lymph % (Auto) (25-40) % Chester % (Auto) (3-14) % Eos % (Auto) (2-4) % Baso % (Auto) (0-2) % Neut # (Auto) (0555-6935) /uL Lymph # (Auto) (5704-3245) /uL Chester # (Auto) (0-900) /uL Eos # (Auto) (0-450) /uL Baso # (Auto) (0-100) /uL Sodium (137-145) mmol/L Potassium (3.4-5.1) mmol/L Chloride (98-107) mmol/L Carbon Dioxide (22-32) mmol/L BUN (7-17) mg/dL Creatinine (0.52-1.04) mg/dL Estimated GFR (>60) mL/min BUN/Creatinine Ratio (6-22) Glucose (80-110) mg/dL Calcium (8.4-10.2) mg/dL Total Bilirubin (0.2-1.3) mg/dL AST (14-36) IU/L ALT (<35) IU/L Alkaline Phosphatase (38-126) U/L Ammonia (9-30) umol/L Total Creatine Kinase (30-135) U/L Troponin I (0.01-0.034) ng/mL NT-Pro-B Natriuret Pep (<450) pg/mL Total Protein (6.3-8.2) g/dL Albumin (3.5-5.0) g/dL Globulin (1.7-4.1) g/dL Albumin/Globulin Ratio (1.0-2.8) Lipase (23-300) U/L Urine Color Urine Appearance Urine pH Normal (4.5-8.0) Ur Specific [place] (1.000-1.035) Urine Protein (Negative) Urine Glucose (UA) (Negative) g/dL Urine Ketones (NEGATIVE) Urine Occult Blood (Negative) Urine Nitrate (Negative) Urine Bilirubin (NEGATIVE) Ur Bilirubin Confirm (Negative) Urine Urobilinogen (0.2) E.U./dL Ur Leukocyte Esterase (NEGATIVE) Urine RBC (0-5/HPF) Urine WBC (0-5/HPF) Ur Squamous Epith Cells (0-5/HPF) Urine Bacteria (None) Ur Culture Indicated? Vol Urine Centrifuged U Opiates 300ng/mL cut (Negative) Ur Oxycodone Screen (Negative) Urine Methadone Screen (Negative) Ur Barbiturates Screen (Negative) U Tricyclic Antidepress (Negative) Ur Phencyclidine Scrn (Negative) Ur Amphetamines Screen (Negative) U Methamphetamines Scrn (Negative) Ur MDMA Scrn (Ecstasy) (Negative) U Benzodiazepines Scrn (Negative) Urine Cocaine Screen (Negative) U Marijuana (THC) Screen (Negative) Urine Specific [place] Normal (Normal) Ur Creatinine Normal (Normal) Chlamy pneumoniae PCR (Not Detect) Adenovirus (PCR) (Not Detect) B. pertussis DNA (PCR) (Not Detect) B.parapertussis DNA PCR (Not Detecte) Coronavirus OC43 (PCR) (Not Detect) Coronavirus HKU1 (PCR) (Not Detect) Coronavirus 229E (PCR) (Not Detect) SARS-CoV-2 (PCR) (Not Detecte) Coronavirus NL63 (PCR) (Not Detect) Human Metapneumovir PCR (Not Detect) Influenza Type A (PCR) (Not Detect) Influenza Type B (PCR) (Not Detect) M. pneumoniae (PCR) (Not Detect) Parainfluenza 1 (PCR) (Not Detect) Parainfluenza 2 (PCR) (Not Detect) Parainfluenza 3 (PCR) (Not Detect) Parainfluenza 4 (PCR) (Not Detect) RSV (PCR) (Not Detect) Entero/Rhino (PCR) (Not Detect) Imaging Data Chest x-ray: Radiologist's Impression: [address] [address] XRay Report Signed Patient: Kristy Diez MR#: [id number] : 1945 Acct:[id number] Age/Sex: 79 / F Date of Service: 02/21/24 Loc: ED Accession Number: [id number] Procedure: XR chest 1V Ordering Provider: Sol Pierce D.O. PROCEDURE: XR CHEST 1V INDICATIONS: altered mental status TECHNIQUE: One view of the chest was acquired. COMPARISON: None. FINDINGS: Surgical changes and devices: None. Lungs and pleura: Lungs are clear except for what appears to be a calcified hamartoma overlying the lateral right base at the costophrenic sulcus, measuring up to 1.8 cm in maximal dimension. No pleural effusions or pneumothorax. Mediastinum: Mediastinal contours appear normal. Heart size is normal. Bones and chest wall: No suspicious bony lesions. Overlying soft tissues appear unremarkable. 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 Heart size is normal. Dictated by: Jacob Chavez M.D. on 02/21/2024 at 13:54 Approved by: Jacob Chavez M.D. on 02/21/2024 at 13:56 ECG Data Attestation: I personally reviewed and interpreted this ECG as follows: Interpretation: Sinus rhythm sinus arrhythmia rate 81 CO 136 QRS of 56 QTC of 450, no acute ST changes appreciated. MDM Narrative Medical decision making narrative: 79-year-old female with acute on chronic memory change, persistent cough for the past week. Chest x-ray shows suspected calcified harmartoma EKG shows sinus rhythm with sinus arrhythmia Labs normal white count hemoglobin of 16.9 macrocytic with a MCV of 103 potassium of 196. Sodium 132 potassium 4.2 chloride 94 CO2 of 24 BUN 12 creatinine of 0.62 glucose of 113 calcium 9.1 bilirubin of 1.4, AST of 201 ALT of 125 patient's does note patient has a least 2 large glasses of wine daily. This maybe contributing to her changes. Alk-phos of 135 lipase is 102. Total CK is 24. Troponin is less than 0.012. BNP is 567 Respiratory panel is negative Urinalysis patient has trace protein 3+ ketones 1+ blood positive nitrates +bilirubin negative leukocyte esterase many bacteria. Culture was ordered. Patient's exam lungs are clear, chest x-ray shows no acute change patient does have changes on urinalysis consistent with UTI and I suspect this maybe causing some changes to her mentation sounds like she was some chronic baseline memory issues. Patient was given a dose of Rocephin here started on oral antibiotic. Discussed findings with patient and family was given a dose of Rocephin here in the department we will start on oral antibiotic. She was follow up this Saturday with Dr. Lynette Redding, to establish. Discussed return precautions. Patient was given a copy of her her labs from today. Discussed with patient and has been he feels comfortable returning home with the patient this evening. Discussed return precautions they can return at any time if symptoms are worsening. NURSERY HELPER did meet with patient and family regarding potential for resources. Discharge Plan Departure Patient Disposition: Home Clinical Impression: Acute UTI, Confusion Instructions: DI for Urinary Tract Infection (UTI) Activity Restrictions/Additional Instructions: Your workup today shows changes consistent with UTI or bacterial infection, this can sometimes cause increased confusion or changes to mentation. A urine culture is pending this takes about 48-72 hours to result if it shows resistance we would contact you to change her antibiotic Your workup does show your liver enzymes are somewhat elevated, this maybe related to your alcohol intake. Please share your results at your follow up appointment on Saturday. Please take oral antibiotics until completed. [facility] [place]. Please return for fevers, new chest pain or shortness of breath, lightheadedness or passing out, rapidly worsening mentation, new swelling of your extremities, persistent vomiting or other new or concerning changes. Prescriptions: New amoxicillin-pot clavulanate 875-125 mg tablet 1 tab PO BID Qty: 14 0RF No Action cholecalciferol (vitamin D3) 2,000 unit capsule 2,000 unit PO DAILY escitalopram oxalate [Lexapro] 5 mg tablet 2.5 mg PO DAILY Qty: 30 2RF Rx Instructions: If not improved after 1 month, may increase to 1 tab daily Referrals: Henrik Fernandez ARNP [Primary Care Provider] - Stand Alone Forms: Patient Portal/API/Survey
[2024-02-21 13:41] LABS: Add Manual Diff / Slide Review NO; Basophils Absolute Auto 0 /uL (0-100); Basophils Percent Auto 0.6 % (0-2); Eosinophils Absolute Auto 0 /uL (0-450); Eosinophils Percent Auto 0.5 % (2-4); Hematocrit 49.9 % (36-46); Hemoglobin 16.9 g/dL (12.0-16.0); Lymphocytes Absolute Auto 1200 /uL (1100-4500); Lymphocytes Percent Auto 17.5 % (25-40); Mean Corpuscular HGB Conc 33.9 % (30-36); Mean Corpuscular Volume 103.2 fL (80-100); Monocytes Absolute Auto 700 /uL (0-900); Neutrophils Absolute Auto 4600 /uL (1500-7000); Neutrophils Percent Auto 70.4 % (50-75); Platelet Count 196 X10^3/uL (150-400); Red Blood Cell Count 4.83 X10^6/uL (4.0-5.2); Red Cell Distribution Width 14.1 % (11.6-14.8); White Blood Cell Count 6.6 X10^3/uL (4.5-11.0)
[2024-02-21 13:47] LABS: Ammonia (NH3) < 9 umol/L (9-30)
[2024-02-21 13:48] LABS: Alanine Aminotransferase 125 IU/L (<35); Albumin 3.7 g/dL (3.5-5.0); Albumin Globulin Ratio 1.2 (1.0-2.8); Alkaline Phosphatase 135 U/L (38-126); Aspartate Aminotransferase 201 IU/L (14-36); BUN Creatinine Ratio 19.4 (6-22); Bilirubin Total 1.4 mg/dL (0.2-1.3); Blood Urea Nitrogen 12 mg/dL (7-17); Calcium 9.1 mg/dL (8.4-10.2); Carbon Dioxide 24 mmol/L (22-32); Chloride 94 mmol/L (98-107); Estimated Glomerular Filt Rate > 60 mL/min (>60); Glucose 113 mg/dL (80-110); HEMOLYSIS < 15 (0-50); Potassium 4.2 mmol/L (3.4-5.1); Sodium 132 mmol/L (137-145); Total Protein 6.7 g/dL (6.3-8.2)
[2024-02-21 14:06] LABS: Creatine Kinase 24 U/L (30-135); Lipase 102 U/L (23-300)
[2024-02-21 14:19] LABS: NT-proBNP (BNP-Adult 18+) 567 pg/mL (<450); Troponin I < 0.012 ng/mL (0.01-0.034)
--- NOTE | 2024-02-21 14:37 | PC.NURSE ---
Spouse is concerned that patient may have pneumonia, patient has had viral illness for a couple weeks with cough and patient has not gotten better. Patient also is having some confusion, in triage she thought it was 1983, and patient told this RN that it was June. Patient also thinks that she went to the store this AM when in fact she did not. When assisting this patient to the bathroom elmer
[2024-02-21 14:55] LABS: Adenovirus Not Detected (Not Detect); B. parapertussis Not Detected (Not Detecte); Bordetella pertussis Not Detected (Not Detect); Chlamydophila pneumoniae Not Detected (Not Detect); Coronavirus 229E Not Detected (Not Detect); Coronavirus HKU1 Not Detected (Not Detect); Coronavirus NL 63 Not Detected (Not Detect); Coronavirus OC43 Not Detected (Not Detect); Human Metapneumovirus Not Detected (Not Detect); Human Rhinovirus/Enterovirus Not Detected (Not Detect); Influenza A Not Detected (Not Detect); Influenza B Not Detected (Not Detect); Mycoplasma pneumoniae Not Detected (Not Detect); Parainfluenza Virus 1 Not Detected (Not Detect); Parainfluenza Virus 2 Not Detected (Not Detect); Parainfluenza Virus 3 Not Detected (Not Detect); Parainfluenza Virus 4 Not Detected (Not Detect); Respiratory Syncytial Virus Not Detected (Not Detect); SARS- CoV-2 Not Detected (Not Detecte)
--- NOTE | 2024-02-21 14:57 | PC.NURSE ---
Spouse is concerned that patient may have pneumonia, patient has had viral illness for a couple weeks with cough and patient has not gotten better. Patient also is having some confusion, in triage she thought it was 1983, and patient told this RN that it was June. Patient also thinks that she went to the store this AM when in fact she did not. When assisting this patient to the bathroom this RN noticed foul smelling urine
[2024-02-21 16:21] LABS: Bacteria Urine Many (>30); RBC Urine None Seen (0-5/HPF); Urine Volume Low Vol <10mL unspun; WBC Urine 0-1/HPF (0-5/HPF)
[2024-02-21 16:22] LABS: Culture Indicated Urine Cult Not Indicated; Squamous Epithelial Cell Urine 1-5 /HPF (0-5/HPF)
[2024-02-21 16:24] LABS: UR Morphine/Opiate cutoff 300 Negative (Negative); Ur Creatinine Normal (Normal); Ur Specific Gravity Normal (Normal); Urine Amphetamines Negative (Negative); Urine Barbiturates Negative (Negative); Urine Benzodiazepines Negative (Negative); Urine Cocaine Negative (Negative); Urine MDMA Negative (Negative); Urine Methadone Negative (Negative); Urine Methamphetamines Negative (Negative); Urine Oxycodone Negative (Negative); Urine Phencyclidine Negative (Negative); Urine Tetrahydrocannabinol Negative (Negative); Urine Tricyclic Antidepressant Negative (Negative); Urine pH Normal (Normal)
[2024-02-21 16:28] LABS: Appearance Urine UA CLEAR; Bilirubin Urine UA 1+ (NEGATIVE); Color Urine UA YELLOW; Glucose Urine UA NEGATIVE (Negative); Ketones Urine UA 3+ (NEGATIVE); Leukocyte Esterase Urine UA NEGATIVE (NEGATIVE); Nitrite Urine UA POSITIVE (Negative); Occult Blood Urine UA 1+ (Negative); Protein Urine UA TRACE (Negative); Specific Gravity Urine UA >=1.030 (1.000-1.035)
[2024-02-21 16:33] LABS: Ictotest Urine Negative (Negative)
[2024-02-21] MEDS: cefTRIAXone 1,000 MG in SODIUM CHLORIDE 0.9% 100 ML 200 MG IV (16:43)
--- NOTE | 2024-02-21 17:27 | CM.SWNOTE ---
ED BAY STOCKER Note Patient is 79 y/o female who presents to ED with spouse due to concern for patient's recent cognitive decline, recent cough and some weakness. Patient's spouse has noticed that patient has been more confused in recent weeks. Patient was seeing PCP SAVANNA Hernandez. Patient missed appt on 02/19/24. It is reported that patient is going to see provider Lynette Redding MD at [facility] who specializes in geriatrics. Patient has upcoming appt next Saturday. Patient has [employer] and Medicare Part A insurance. Patient has hx of Anxiety, patient's spouse endorses concern for cognitive decline in the last year. Per lab results it is identified that patient has an acute UTI. BAY STOCKER receives consult to offer patient and spouse resources. It is reported that patient's spouse had a one extramarital affair with patient's best friend a few years ago and patient presents with ongoing stress and anxiety regarding this, it is reported that patient primarily is saddened by losing her best friend. BAY STOCKER enters room to meet with patient and spouse. Patient presents as A/O to self and person, patient asks if she is in [place] and is assured she is in [place]. Patient endorses she is independent with ADLs, it is reported that patient does not drive. Patient endorses that she has grandkids, kid and sisters in town near by. Patient endorses she has been impacted by COVID and social insolation. BAY STOCKER discusses seeing an outpatient MH provider and potentially couples counseling. BAY STOCKER provides patient and spouse with senior resource guide and lists of MH providers that accept patient's insurance. Plan: patient to d/c to home with spouse upon medical clearance with rx antibiotics, patient to f/u with new PCP regarding cognitive decline, patient and spouse to f/u with resources provided. ARTEMIO Leach
== END 2024-02-21 17:28 | disposition home or self-care (01) ==
PROVIDERS: Emergency Provider Emergency Medicine; PCP Registered Nurse Diabetes Educator
DX: N39.0 Urinary tract infection, site not specified (principal); R41.0 Disorientation, unspecified; R05.9 Cough, unspecified; R42 Dizziness and giddiness; I49.9 Cardiac arrhythmia, unspecified
CPT/HCPCS: 36415; 71045; 80053; 80305; 81003; 81015; 82140; 82550; 83690; 83880; 84484; 85025; 87633; 93005; 96365; 99284; J0696

== ENCOUNTER → 2024-03-31 14:04 | Outpatient (CLI) | payer OTHER, SELFPAY ==
--- NOTE | 2024-03-31 | DI.CT.S_ITS ---
PROCEDURE: CT LUMBAR SPINE WO CON INDICATIONS: SACRAL PAIN/FALL/MIDLINE LBP WO SCIATICA/FALL TECHNIQUE: Noncontrast 3 mm thick sections acquired from the T12 level to the sacrum. Sagittal and coronal reformats were constructed. For radiation dose reduction, the following was used: automated exposure control. COMPARISON: None. FINDINGS: Image quality: Excellent Mild levoscoliosis lumbar spine, centered at L2-3. Straightening of the lumbar spine. Mild retrolisthesis of L3 on L4, and L4 on L5. Vertebral body heights are well maintained. Small Schmorl's node in the superior endplate of L5. Multilevel severe degenerative disease of the lumbar spine. Multilevel disc bulge. Right neural foraminal stenosis: Moderate at L4-5. Left neural foraminal stenosis: Mild at L5-S1. T12-L1: No central canal stenosis. L1-L2: No central canal stenosis. L2-L3: Mild bilateral facet arthropathy. No central canal stenosis. Mild disc bulge. L3-L4: Mild disc bulge. Mild bilateral facet arthropathy. No central canal stenosis. L4-5: Disc bulge. Mild bilateral facet arthropathy with ligamentum flava hypertrophy. Mild central canal stenosis. L5-S1: Disc bulge. Mild bilateral facet arthropathy. No central canal stenosis. Multiple healed left-sided transverse fracture of the lumbar spine. Visualized sacrum is intact. Soft tissue findings: Severe atherosclerotic calcification of the abdominal aorta. No abdominal aortic aneurysm. Distended bladder. Severe sigmoid colon diverticulosis. IMPRESSION: 1. No acute fracture in the lumbar spine. 2. Multilevel degenerative changes of the lumbar spine, most pronounced at L4-5, where there is mild central canal stenosis and moderate right neural foraminal stenosis. Dictated by: Radha Ruano M.D. on 03/31/2024 at 17:43 Approved by: Radha Ruano M.D. on 03/31/2024 at 17:51
--- NOTE | 2024-03-31 14:07 | DI.CT.S_ITS ---
PROCEDURE: CT PEL WO CON INDICATIONS: SACRAL PAIN/FALL/MIDLINE LBP WO SCIATICA/FALL TECHNIQUE: Noncontrast 3 mm axial sections acquired through the bony pelvis, with coronal and sagittal reformatting. COMPARISON: , CR, XR SACROILIAC JOINTS 3+ VIEWS, 03/02/2024, 13:37. FINDINGS: Image quality: Excellent. Bones: The sacrum is intact. Mild degenerative changes of bilateral sacroiliac joint. No acute fracture or dislocation of either hip. Mild degenerative changes of bilateral hips. Cortical irregularity of the distal sacral coccyx Soft tissues: Moderate calcification of bilateral common iliac, and severe calcification of bilateral internal iliac arteries. Distended bladder. The uterus is not visualized, likely surgically absent. The right ovary is not visualized. The left ovary is unremarkable. Severe sigmoid colon diverticulosis. No diverticulitis. No bowel obstruction in the pelvis. No pelvic lymphadenopathy. IMPRESSION: Cortical irregularity of the distal sacral coccyx, raising concern for nondisplaced sacral coccyx fracture, age indeterminate. Recommend correlation with point tenderness. Dictated by: Radha Ruano M.D. on 03/31/2024 at 17:51 Approved by: Radha Ruano M.D. on 03/31/2024 at 17:58
== END ==
PROVIDERS: PCP Registered Nurse Diabetes Educator; Referring Provider Internal Medicine Geriatric Medicine; Visit Provider Internal Medicine Geriatric Medicine
DX: M53.3 Sacrococcygeal disorders, not elsewhere classified (principal); M51.370 Other intervertebral disc degeneration, lumbosacral region with discogenic back pain only; M51.360 Other intervertebral disc degeneration, lumbar region with discogenic back pain only; M48.061 Spinal stenosis, lumbar region without neurogenic claudication; M48.07 Spinal stenosis, lumbosacral region; M47.816 Spondylosis without myelopathy or radiculopathy, lumbar region; M47.817 Spondylosis without myelopathy or radiculopathy, lumbosacral region; M41.9 Scoliosis, unspecified; I70.0 Atherosclerosis of aorta; I70.8 Atherosclerosis of other arteries; K57.30 Diverticulosis of large intestine without perforation or abscess without bleeding; W19.XXXA Unspecified fall, initial encounter; Z87.81 Personal history of (healed) traumatic fracture
CPT/HCPCS: 72131; 72192

== ENCOUNTER → 2024-04-07 15:01 | Outpatient (CLI) | payer OTHER, SELFPAY ==
--- NOTE | 2024-04-07 15:04 | DI.RAD.S_ITS ---
PROCEDURE: XR DEXA AXIAL SKELETON INDICATIONS: FX OF SACRUM,LUMBAR TRANSVERSE PROCESS FX COMPARISON: None. FINDINGS: Lumbar Spine: Bone mineral density 0.994 g/cm2, T score -0.5. Left Femoral Neck: Bone mineral density 0.599 g/cm2, T score -2.3. Left Hip: Bone mineral density 0.717 g/cm2, T score -1.8. Fracture Risk Calculation (when applicable): 10-year fracture risk of a major osteoporotic fracture 20 percent and of a hip fracture 6.3 percent. (T score greater or equal to -1.0 to: NORMAL) (T score from -1.1 to -2.4: OSTEOPENIA) (T score less than or equal to -2.5: OSTEOPOROSIS) IMPRESSION: Low bone mineral density (osteopenia) by WHO classification. Follow-up guidelines as follows: Osteoporosis: Consider a repeat DEXA and Vertebral Fracture Assessment (VFA) exam in 2 years or sooner if medically necessary, to reassess this patient's status. Osteopenia: Consider a repeat DEXA in 2-3 years to reassess this patient's status, or if there is a new clinical indication. Normal: Consider a repeat DEXA in 5 years or sooner, or if there is a new clinical indication. All treatment decisions require clinical judgment and consideration of individual patient factors, including patient preferences, comorbidities, previous drug use, risk factors not captured in the FRAX model (e.g., frailty, falls, vitamin D deficiency, increased bone turnover, interval significant decline in bone density ) and possible under- or over-estimation of fracture risk by FRAX. In addition, the NOF Guide recommends that FDA-approved medical therapies be considered in postmenopausal women and men age >= 50 years with a: * Hip or vertebral (clinical or morphometric) fracture * T-score of <=-2.5 at the spine or hip * Ten-year fracture probability by FRAX of >= 3% for hip fracture or >=20% for major osteoporotic fracture. Dictated by: Adrian Baker M.D. on 04/07/2024 at 20:17 Approved by: Adrian Baker M.D. on 04/07/2024 at 20:17
== END ==
LOC: RAD 15:03
PROVIDERS: PCP Internal Medicine Geriatric Medicine; Referring Provider Internal Medicine Geriatric Medicine; Visit Provider Internal Medicine Geriatric Medicine
DX: S32.10XA Unspecified fracture of sacrum, initial encounter for closed fracture (principal); S32.009A Unspecified fracture of unspecified lumbar vertebra, initial encounter for closed fracture; M85.89 Other specified disorders of bone density and structure, multiple sites
CPT/HCPCS: 77080

== ENCOUNTER → 2024-04-14 15:57 | Outpatient (CLI) | payer OTHER, SELFPAY ==
[2024-04-14 17:17] LABS: Alanine Aminotransferase 30 IU/L (<35); Albumin 3.5 g/dL (3.5-5.0); Albumin Globulin Ratio 1.2 (1.0-2.8); Alkaline Phosphatase 76 U/L (38-126); Aspartate Aminotransferase 36 IU/L (14-36); BUN Creatinine Ratio 23.1 (6-22); Bilirubin Total 0.9 mg/dL (0.2-1.3); Blood Urea Nitrogen 15 mg/dL (7-17); Calcium 9.4 mg/dL (8.4-10.2); Carbon Dioxide 29 mmol/L (22-32); Chloride 96 mmol/L (98-107); Estimated Glomerular Filt Rate > 60 mL/min (>60); Glucose 113 mg/dL (80-110); HEMOLYSIS < 15 (0-50); Potassium 3.6 mmol/L (3.4-5.1); Sodium 132 mmol/L (137-145); Total Protein 6.5 g/dL (6.3-8.2)
[2024-04-14 17:35] LABS: Vitamin D 25 Hydroxy (D3) 72.3 ng/mL (30.0-100.0)
[2024-04-15 20:11] LABS: Calcium 9.3 mg/dL (8.7-10.3); Parathyroid Hormone, Intact 20 pg/mL (15-65)
[2024-04-16 13:09] LABS: Albumin 2.8 g/dL (2.9-4.4); Alpha-1-Globulin 0.3 g/dL (0.0-0.4); Alpha-2-Globulin 0.7 g/dL (0.4-1.0); Gamma Globulin 1.2 g/dL (0.4-1.8); Globulin Total 3.2 g/dL (2.2-3.9)
[2024-04-16 13:40] LABS: Ionized Calcium 5.2 mg/dL (4.5-5.6)
== END ==
LOC: LAB 15:58
PROVIDERS: PCP Internal Medicine Geriatric Medicine; Referring Provider Internal Medicine Geriatric Medicine; Visit Provider Internal Medicine Geriatric Medicine
DX: M85.852 Other specified disorders of bone density and structure, left thigh (principal); S32.10XD Unspecified fracture of sacrum, subsequent encounter for fracture with routine healing; R79.89 Other specified abnormal findings of blood chemistry; M83.3 Adult osteomalacia due to malnutrition
CPT/HCPCS: 36415; 80048; 80053; 82306; 82310; 82330; 83970; 84155; 84165

== ENCOUNTER → 2024-09-09 11:16 | Outpatient (CLI) | payer OTHER, SELFPAY ==
[2024-09-09 12:01] LABS: Add Manual Diff / Slide Review NO; Hematocrit 40.4 % (36-46); Hemoglobin 13.3 g/dL (12.0-16.0); Lymphocytes Absolute Auto 1300 /uL (1100-4500); Mean Corpuscular HGB Conc 32.9 % (30-36); Mean Corpuscular Hemoglobin 29.1 PG (26-34); Mean Corpuscular Volume 88.4 fL (80-100); Platelet Count 217 X10^3/uL (150-400)
[2024-09-09 12:27] LABS: Alanine Aminotransferase 14 IU/L (<35); Albumin 4.0 g/dL (3.5-5.0); Albumin Globulin Ratio 1.4 (1.0-2.8); Alkaline Phosphatase 79 U/L (38-126); Blood Urea Nitrogen 19 mg/dL (7-17); Calcium 9.5 mg/dL (8.4-10.2); Carbon Dioxide 27 mmol/L (22-32); Chloride 105 mmol/L (98-107); Estimated Glomerular Filt Rate > 60 mL/min (>60); Globulin 2.9 g/dL (1.7-4.1); Glucose 84 mg/dL (70-99); HEMOLYSIS < 15 (0-50); Potassium 4.0 mmol/L (3.4-5.1); Sodium 139 mmol/L (137-145); Total Protein 6.9 g/dL (6.3-8.2)
[2024-09-09 12:56] LABS: TSH w/ Reflex to FT4 2.33 uIU/mL (0.47-4.68)
[2024-09-09 13:31] LABS: Folate 4.9 ng/mL (2.76-20.0); Vitamin B12 268 pg/mL (239-931)
== END ==
PROVIDERS: PCP Registered Nurse Diabetes Educator; Referring Provider Registered Nurse Diabetes Educator; Visit Provider Registered Nurse Diabetes Educator
DX: Z00.00 Encounter for general adult medical examination without abnormal findings (principal); Z51.81 Encounter for therapeutic drug level monitoring; R74.8 Abnormal levels of other serum enzymes; R42 Dizziness and giddiness
CPT/HCPCS: 36415; 80053; 82607; 82746; 84443; 85025